=== PATIENT | female | born 1985 | race Caucasian/White ===

== ENCOUNTER → 2020-02-09 | Outpatient (CLI) | payer OTHER ==
--- NOTE | 2020-02-09 15:39 | RAD ---
PROCEDURE: KUB STUDY DATE: 02/09/2020 CLINICAL INDICATION / HISTORY: Reason: ABD PAIN / Spl. Instructions: CROHNS DISEASE WITH 2 COLON RESECTIONS, 18 INCHES REMOVED / History: . TECHNIQUE: Single AP image of the abdomen was obtained. COMPARISON: None currently available. FINDINGS: The lung bases are not included. A nonobstructive bowel gas pattern is present. Sutures in the mid lower abdomen/pelvis are seen, consistent with previous bowel surgery with anastomosis. No organomegaly or pathologic calcifications are identified. No acute osseous abnormality. IMPRESSION: No acute abdominal process. Electronically signed by: Jennifer Naik MD (02/09/2020 3:36 PM) [id number]
== END ==
LOC: EEVIPCON 12:48 → RAD 12:48
PROVIDERS: ATTEND Nurse Practitioner
DX: R10.9 Unspecified abdominal pain (principal); K50.90 Crohn's disease, unspecified, without complications
CPT/HCPCS: 74018

== ENCOUNTER → 2021-01-04 | Outpatient (CLI) | payer OTHER | LOC: LAB 11:14 | PROVIDERS: ATTEND Preventive Medicine Occupational Medicine | DX: K50.90 Crohn's disease, unspecified, without complications (principal) | CPT/HCPCS: 36415; 80053; 85025 ==